=== PATIENT | male | born 1995 | race Hispanic/Latino ===

== ENCOUNTER 2018-02-06 21:34 | Emergency (ER) | payer MEDICAID, OTHER ==
[2018-02-07] MEDS ORDERED: ACETAMINOPHEN EXTRA STRENGTH 500 MG TABLET ONE (00:13)
[2018-02-07 00:46] LABS: BASOPHILS % (AUTO) 0.4 % (0.0-5.0); EOSINOPHILS % (AUTO) 0.8 % (0.0-8.0); HEMATOCRIT 41.5 % (42-54); LYMPHOCYTES % (AUTO) 21.1 % (21.0-51.0); MEAN CORPUSCULAR HEMOGLOBIN 28.6 pg (27.0-33.0); MEAN CORPUSCULAR HGB CONC 34.4 g/dL (32.0-36.0); MEAN CORPUSCULAR VOLUME 83.2 fL (80-100); MONOCYTES % (AUTO) 8.2 % (3.0-13.0); NEUTROPHILS % (AUTO) 69.5 % (40.0-77.0); PLATELET COUNT (AUTO) 248 K/uL (130-400); RED BLOOD CELL COUNT(AUTO) 4.99 MIL/uL (4.50-6.20); RED CELL DISTRIBUTION WIDTH 12.5 % (11.0-15.5); WHITE BLOOD COUNT (AUTO) 12.8 K/uL (4.8-10.8)
[2018-02-07 01:01] LABS: POTASSIUM 4.1 mmol/L (3.5-5.1)
[2018-02-07] MEDS ORDERED: GUAIFENESIN-CODEINE 5 ML SYRUP ONE (01:01)
[2018-02-07] MEDS ORDERED: IPRATROPIUM/ALBUTEROL SULFATE 3 ML SOLUTION IH ONE (01:04)
[2018-02-07 01:06] LABS: ALBUMIN 3.8 g/dL (3.5-5.0); BILIRUBIN,TOTAL 0.5 mg/dL (0.2-1.0); TOTAL PROTEIN, SERUM 8.4 g/dL (6.0-8.3)
[2018-02-07] MEDS ORDERED: DEXAMETHASONE SOD PHOSPHATE 10MG/ML 1ML VIAL ONE (02:23)
== END 2018-02-07 02:45 | disposition home or self-care (01) ==
LOC: EDH 21:34
DX: J18.9 Pneumonia, unspecified organism (principal); Z72.0 Tobacco use
CPT/HCPCS: 36415; 71046; 80053; 85025; 87804 ×2; 94640; 96374; 99285; J1100

== ENCOUNTER 2022-09-20 12:12 | Emergency (ER) | payer OTHER ==
[~2022-09-20] VITALS: Ht 180.3 cm; Wt 117.9 kg
[2022-09-20 12:28] VITALS: BP 145/79
[2022-09-20] MEDS ORDERED: TETANUS/DIPHTHERIA TOXOID [ADULT] 0.5 ML VIAL IM ONE (13:00)
[2022-09-20] MEDS ORDERED: HYDROCODONE/ACETAMINOPHEN 5/325 MG TAB PO ONE (13:00)
[2022-09-20] MEDS ORDERED: AMOX/CLAV 875/125MG TAB PO ONE (13:00)
[2022-09-20] MEDS ORDERED: IBUP-2071 PO (13:03)
[2022-09-20] MEDS ORDERED: AMOX1TAB16 PO (13:03)
[2022-09-20] MEDS ORDERED: ACET-2079 PO (13:03)
== END 2022-09-20 13:22 | disposition home or self-care (01) ==
LOC: EDH 12:12
DX: S61.532A Puncture wound without foreign body of left wrist, initial encounter (principal); L03.114 Cellulitis of left upper limb; Z90.89 Acquired absence of other organs; W55.01XA Bitten by cat, initial encounter; Y93.89 Activity, other specified; Y92.89 Other specified places as the place of occurrence of the external cause; Y99.8 Other external cause status
CPT/HCPCS: 29125; 73100; 90471; 90714